=== PATIENT | male | born 1955 ===

== ENCOUNTER → 2023-07-24 10:46 | Outpatient (BNVA) | payer MEDICARE, MEDICAID, SELFPAY | PROVIDERS: PCP Nurse Practitioner Family; Referring Provider Nurse Practitioner Family; Visit Provider Nurse Practitioner Gerontology | DX: N40.1 Benign prostatic hyperplasia with lower urinary tract symptoms (principal); N13.8 Other obstructive and reflux uropathy; N32.81 Overactive bladder | CPT/HCPCS: 51798; 81003; 99203 ==

== ENCOUNTER 2025-03-29 14:49 | Outpatient (RCR) | payer MEDICARE, MEDICAID, SELFPAY | END 2025-04-27 23:59 | disposition home or self-care (01) | LOC: PRC 14:49 | PROVIDERS: PCP Nurse Practitioner Family; Visit Provider Internal Medicine Pulmonary Disease | DX: J44.89 Other specified chronic obstructive pulmonary disease (principal); Z51.89 Encounter for other specified aftercare | CPT/HCPCS: 94626 ==